=== PATIENT | male | born 1980 | race Native Hawaiian/Other Pacific Islander ===

== ENCOUNTER 2018-09-29 13:57 | Emergency (ER) | payer OTHER ==
[~2018-09-29] VITALS: Ht 193 cm; Wt 138.3 kg
[2018-09-29 14:32] LABS: PLATELET COUNT 195 K/uL (142-355)
[2018-09-29 14:43] LABS: POTASSIUM 4.1 mmol/L (3.6-5.2)
[2018-09-29 17:31] VITALS: BP 137/86; TEMP 97.8
== END 2018-09-29 17:33 | disposition home or self-care (01) ==
LOC: ED 13:57
PROVIDERS: Allergy & Immunology
DX: R07.89 Other chest pain (principal); W57.XXXA Bitten or stung by nonvenomous insect and other nonvenomous arthropods, initial encounter; R00.0 Tachycardia, unspecified
CPT/HCPCS: 36415; 80053; 80307; 81000; 83520; 84484; 85027; 93005; 96361; 96374; 96375; 99284; J1200; J2270; J2930